=== PATIENT | male | born 1940 | race Caucasian/White ===

== ENCOUNTER 2018-06-23 15:02 | Emergency (ER) | payer OTHER, SELFPAY ==
[2018-06-23 15:08] VITALS: BP 103/67; PULSE 72; RESP 15; TEMP 36.7; O2SAT 100; BMI 24.3
--- NOTE | 2018-06-23 15:36 | ED.LOWEXIN ---
HPI - Extremity Injury (Lower) General Chief Complaint: Extremity Injury, Lower Stated Complaint: fall,wound of lower left leg Time Seen by Provider: 06/23/18 15:19 Source: patient Mode of arrival: ambulatory Limitations: no limitations History of Present Illness HPI Narrative: 78-year-old male nonsmoker presents with a chief complaint of mechanical fall which resulted in an abrasion or skin tear to his left anterior moore. His tetanus is not current. He denies any significant direct trauma and states that it was a very low energy fall. He denies other injuries such as head neck or back pain. He states he did not have any prodromal symptoms such as dizziness, weakness or lightheadedness, stating he merely stumbled. MD complaint: leg injury Onset (ago): minute(s) Type of Injury: blunt Place: home Severity: mild Relieving factors: nothing Exacerbating factors: nothing Context: fall and direct blow Associated symptoms: swelling Other symptoms: none Related Data Previous Rx's Medication Instructions Recorded cephalexin [Keflex] 500 mg PO QID 7 Days #28 cap 06/23/18 Allergies Allergy/AdvReac Type Severity Reaction Status Date / Time No Known Drug Allergies Allergy Verified 06/23/18 15:15 Review of Systems Constitutional Denies chills, Denies fever(s), Denies lethargy and Denies weakness Eyes Denies change in vision, Denies eye discharge, Denies irritation and Denies loss of vision ENT Ears, Nose, Mouth, and Throat: Denies change in voice, Denies neck pain and Denies sore throat Cardiovascular Denies chest pain, Denies irregular heart rhythm, Denies lightheadedness, Denies palpitations, Denies dyspnea, Denies dyspnea on exertion and Denies orthopnea Respiratory Denies cough, Denies dyspnea, Denies dyspnea on exertion and Denies wheezing Gastrointestinal Gastrointestinal: Denies abdominal pain, Denies change in bowel habits, Denies diarrhea, Denies nausea and Denies vomiting Genitourinary Denies hematuria, Denies flank pain, Denies urinary incontinence and Denies urinary urgency Musculoskeletal Denies neck pain Integumentary/Breasts Denies pruritus, Reports erythema, Denies rash and Reports wounds Neurologic Denies confusion, Denies loss of vision and Denies weakness Psychiatric Denies anxiety, Denies confusion, Denies depression, Denies homicidal ideation and Denies suicidal ideation Endocrine Denies palpitations Hematologic/Lymphatic Denies easy bruising Allergic/Immunologic Denies wheezing PFSH Social History Smoking Status: Former smoker Social History Smoking Status: Former smoker Exam Narrative Exam Narrative: GEN: AOx3 and in mild distress EYES: Pupils are equal, round, and reactive to light and accommodation. Extraoccular muscles are intact bilaterally. There is no subconjunctival hemorrhage or exudate. CHEST: Lungs are clear to auscultation bilaterally and free of wheezes, rales, or rhonchi. Heart rate is regular rhythm, there are no murmurs, clicks, rubs, or gallops. There is no chest wall tenderness. ABD: Abdomen is soft and nontender. There is no guarding or rebound. Bowel sounds are normal in all 4 quadrants. There is no mass or organomegaly. EXT: Full painless ROM of all extremities with no loss of sensation or strength. SKIN: 7 cm superficial abrasion/skin tear to the anterior left moore. There is no active bleeding and no ability to suture, Steri-Strips will be used Initial Vital Signs Initial Vital Signs: Vital Signs Temperature 98.0 F 06/23/18 15:08 Pulse Rate 72 06/23/18 15:08 Respiratory Rate 15 06/23/18 15:08 Blood Pressure 103/67 06/23/18 15:08 Pulse Oximetry 100 06/23/18 15:08 Course Orders Ordered: Discontinued Medications Diphtheria/Tetanus/Acell Pertussis (Adacel) 0.5 ml IM .ONCE ONE Stop: 06/23/18 16:11 Last Admin: 06/23/18 16:18 Dose: 0.5 ml Vital Signs - 8 hr 06/23/18 15:08 06/23/18 17:01 Temperature 98.0 F Pulse Rate 72 74 Respiratory Rate 15 18 Blood Pressure 103/67 Pulse Oximetry 100 100 Discharge Plan Departure Patient Disposition: Home Clinical Impression: Skin tear Discharge Date/Time: 06/23/18 17:01 Interventions: ED Discharge Assessment Last Done: 06/23/18 17:01 Instructions: Skin Wound Activity Restrictions/Additional Instructions: *You have been diagnosed with [skin tear anterior left omore] *What to do: *Take medications as directed *Follow up with your primary care provider in 2-3 days, call for an appointment. Let them know you were seen in the Emergency Department and that we ask that you be seen in follow up *Return to ER if you should have any new, worsening or concerning symptoms Prescriptions: New cephalexin [Keflex] 500 mg capsule 500 mg PO QID 7 Days Qty: 28 RF: 0
[2018-06-23] MEDS: TET,DIPH,PERTUSS(ACELL),VAC/PF 0.5 ML SYRINGE IM (16:18)
[2018-06-23 17:01] VITALS: PULSE 74; RESP 18; O2SAT 100
== END 2018-06-23 17:01 | disposition home or self-care (01) ==
PROVIDERS: Emergency Provider Emergency Medicine
DX: S81.812A Laceration without foreign body, left lower leg, initial encounter (principal); W19.XXXA Unspecified fall, initial encounter; Z23 Encounter for immunization
CPT/HCPCS: 90471; 99282; 99283; 90715